=== PATIENT | male | born 1950 | race Caucasian/White ===

== ENCOUNTER 2018-06-21 18:30 | Observation (INO) | payer MEDICARE, OTHER ==
[~2018-06-21] VITALS: Ht 170.2 cm; Wt 80.5 kg
[~2018-06-21 18:30] MED LIST: ASPI-496 PO; CARV-39 PO; FINA5TAB4 PO; MULT-658 PO; PRAV20TA2 PO; SOTA160T PO; SOTA80TA PO; UBID100C24 PO; VALS40TA2 PO; magnesium PO; potassium PO
[2018-06-21 19:07] LABS: BASOPHILS # (AUTO) 0.03 x10^3/uL (0-0.1); BASOPHILS % (AUTO) 0 % (0-1); EOSINOPHILS # (AUTO) 0.19 x10^3/uL (0-0.4); EOSINOPHILS % (AUTO) 3 % (1-7); LYMPHOCYTES # (AUTO) 2.39 x10^3/uL (1-3.4); LYMPHOCYTES % (AUTO) 35 % (22-44); MD NO; MEAN CORPUSCULAR HEMOGLOBIN 33.1 pg (27.5-34.5); MEAN CORPUSCULAR HGB CONC 34.1 g/dL (33.2-36.2); MEAN PLATELET VOLUME 7.7 fL (7.4-10.4); MONOCYTES # (AUTO) 0.67 x10^3/uL (0.2-0.8); MONOCYTES % (AUTO) 10 % (2-9); NEUTROPHILS # (AUTO) 3.56 x10^3/uL (1.8-6.8); NEUTROPHILS % (AUTO) 52 % (42-75); PLATELET COUNT 180 x10^3/uL (130-400); RED BLOOD COUNT 4.59 x10^6/uL (4.38-5.82); RED CELL DISTRIBUTION WIDTH 12.8 % (9.4-14.8)
[2018-06-21] MEDS ORDERED: LOSA25TA25 PO (19:10)
[2018-06-21 19:18] LABS: ALBUMIN 3.9 g/dL (3.4-5.0); ANION GAP 7 mmol/L (5-15); CALCIUM 8.7 mg/dL (8.5-10.1); CHLORIDE 108 mmol/L (98-107); CREATININE 0.95 mg/dL (0.7-1.3)
--- NOTE | 2018-06-21 19:19 | NUR ---
Pt presents to ED for palpitations. Pt has AICD in place that fired last night. Pt states has been years since it has fired. Pt states palpitations today asn was afraid it would fire again. NSR on onitor with PACs and PVCs. No CP, no SOB.. NAD at this time
[2018-06-21 19:22] LABS: TROPONIN I < 0.015 ng/mL (0.000-0.045)
[2018-06-21 19:49] LABS: FREE T4 (FREE THYROXINE) 0.83 ng/dL (0.76-1.46); THYROID STIMULATING HORMONE 2.39 mIU/L (0.358-3.740)
[2018-06-21] MEDS ORDERED: SODIUM CHLORIDE FLUSH 10ML SYR IVF PRN (20:30)
[2018-06-21] MEDS ORDERED: ENOXAPARIN 40 MG/0.4 ML SQ SCH (21:30)
[2018-06-21] MEDS ORDERED: ONDANSETRON 2MG/ML, 2ML IVPush PRN (21:30)
--- NOTE | 2018-06-21 21:36 | NUR ---
REPORT FROM GABE RN. PT RESTING. VSS. PT WAITING FOR ROOM ASSIGNMENT. CALL LIGHT IN REACH.
--- NOTE | 2018-06-21 21:39 | NUR ---
Report to Lorrie BENSON
[2018-06-21 21:45] LABS: TROPONIN I < 0.015 ng/mL (0.000-0.045)
[2018-06-21 23:30] VITALS: BP 116/77
[2018-06-22 02:52] VITALS: BP 110/72
[2018-06-22 03:11] LABS: BASOPHILS # (AUTO) 0.02 x10^3/uL (0-0.1); BASOPHILS % (AUTO) 0 % (0-1); EOSINOPHILS # (AUTO) 0.18 x10^3/uL (0-0.4); EOSINOPHILS % (AUTO) 3 % (1-7); LYMPHOCYTES # (AUTO) 2.18 x10^3/uL (1-3.4); LYMPHOCYTES % (AUTO) 37 % (22-44); MD NO; MEAN CORPUSCULAR HEMOGLOBIN 32.4 pg (27.5-34.5); MEAN CORPUSCULAR HGB CONC 33.7 g/dL (33.2-36.2); MEAN CORPUSCULAR VOLUME 96.3 fL (81-97); MEAN PLATELET VOLUME 7.9 fL (7.4-10.4); MONOCYTES # (AUTO) 0.59 x10^3/uL (0.2-0.8); MONOCYTES % (AUTO) 10 % (2-9); NEUTROPHILS # (AUTO) 2.91 x10^3/uL (1.8-6.8); NEUTROPHILS % (AUTO) 49 % (42-75); PLATELET COUNT 145 x10^3/uL (130-400); RED BLOOD COUNT 4.33 x10^6/uL (4.38-5.82); RED CELL DISTRIBUTION WIDTH 12.9 % (9.4-14.8)
[2018-06-22 03:24] LABS: ANION GAP 5 mmol/L (5-15); CALCIUM 8.5 mg/dL (8.5-10.1); CHLORIDE 111 mmol/L (98-107); CREATININE 0.97 mg/dL (0.7-1.3)
[2018-06-22 03:28] LABS: TROPONIN I < 0.015 ng/mL (0.000-0.045)
[2018-06-22 06:55] VITALS: BP 114/66
[2018-06-22] MEDS ORDERED: CARVEDILOL 25 MG TABLET PO SCH (09:00)
[2018-06-22] MEDS ORDERED: LOSARTAN 25MG TABLET PO SCH (09:00)
[2018-06-22] MEDS ORDERED: SOTALOL 80MG TABLET PO SCH (09:00)
[2018-06-22] MEDS ORDERED: SOTALOL HCL 40 MG PO SCH (09:00)
[2018-06-22] MEDS ORDERED: ASPIRIN 81 MG TABLET CHEW PO SCH (09:00)
[2018-06-22] MEDS ORDERED: MULTIVITAMIN 1 TABLET PO SCH (09:00)
[2018-06-22] MEDS ORDERED: FINASTERIDE 5 MG TABLET PO SCH (09:00)
[2018-06-22] MEDS ORDERED: PRAVASTATIN 20 MG TABLET PO SCH (21:00)
== END 2018-06-22 08:08 | disposition left against medical advice (07) ==
LOC: ED 20:12 → EDIP 21:13 → 5SO 22:23
PROVIDERS: ADMIT Family Medicine; ATTEND Family Medicine
DX: T82.199A Other mechanical complication of unspecified cardiac device, initial encounter (principal); R42 Dizziness and giddiness; E78.5 Hyperlipidemia, unspecified; I10 Essential (primary) hypertension; I42.9 Cardiomyopathy, unspecified; I47.2 Ventricular tachycardia; K21.9 Gastro-esophageal reflux disease without esophagitis; N40.0 Benign prostatic hyperplasia without lower urinary tract symptoms; Z79.01 Long term (current) use of anticoagulants; Z86.79 Personal history of other diseases of the circulatory system; Z95.0 Presence of cardiac pacemaker
CPT/HCPCS: 36415; 71045; 80048; 82040; 83735; 84439; 84443; 84484; 85025; 93005; 99284; G0378

== ENCOUNTER 2018-06-24 11:28 | Inpatient (IN) | payer MEDICARE, OTHER ==
[~2018-06-24] VITALS: Ht 170.2 cm; Wt 76.4 kg
[~2018-06-24 11:28] MED LIST changes: +LOSA25TA25 PO
--- NOTE | 2018-06-24 12:10 | NUR ---
PT PRESENTED TO ED WITH HIS DEFIBRILLATOR GOING OFF LAST NIGHT AND MONDAY. PT A&OX4. PT WAS ADMITTED ON MONDAY FOR THE SAME. PT A&OX4. EKG DONE IN TRIAGE AND PRESENTED TO MD. PT INTERROGATED BY RN ADVANCED YANI JANG. PT PLACED ON BP, CARDIAC AND CONT. PULSE OXIMETER. ASSESSMENT COMPLETED. LAB AT BEDSIDE.
--- NOTE | 2018-06-24 12:16 | NUR ---
PT REFUSING CHEST XRAY. MD AWARE.
[2018-06-24 12:26] LABS: BASOPHILS % (AUTO) 0 % (0-1); EOSINOPHILS # (AUTO) 0.09 x10^3/uL (0-0.4); EOSINOPHILS % (AUTO) 2 % (1-7); LYMPHOCYTES # (AUTO) 1.52 x10^3/uL (1-3.4); LYMPHOCYTES % (AUTO) 26 % (22-44); MD NO; MEAN CORPUSCULAR HGB CONC 33.1 g/dL (33.2-36.2); MEAN CORPUSCULAR VOLUME 96.6 fL (81-97); MEAN PLATELET VOLUME 7.9 fL (7.4-10.4); MONOCYTES # (AUTO) 0.53 x10^3/uL (0.2-0.8); MONOCYTES % (AUTO) 9 % (2-9); NEUTROPHILS # (AUTO) 3.77 x10^3/uL (1.8-6.8); NEUTROPHILS % (AUTO) 64 % (42-75); PLATELET COUNT 191 x10^3/uL (130-400); RED BLOOD COUNT 4.56 x10^6/uL (4.38-5.82); RED CELL DISTRIBUTION WIDTH 13.3 % (9.4-14.8)
[2018-06-24 12:34] LABS: ALBUMIN 3.7 g/dL (3.4-5.0); ANION GAP 6 mmol/L (5-15); CALCIUM 8.6 mg/dL (8.5-10.1); CHLORIDE 111 mmol/L (98-107)
[2018-06-24 12:41] LABS: CREATININE 0.97 mg/dL (0.7-1.3); TROPONIN I < 0.015 ng/mL (0.000-0.045)
--- NOTE | 2018-06-24 12:41 | NUR ---
paged dr cade for dr henson.
--- NOTE | 2018-06-24 13:25 | NUR ---
PT RESTING IN BED. WARM BLANKET GIVEN TO PT.
[2018-06-24] MEDS ORDERED: LORazepam 2 MG/ML, 1ML IVPush PRN (14:00)
--- NOTE | 2018-06-24 14:27 | NUR ---
PT UP TO BR AND VOIDED. URINE COLLECTED AND SENT TO LAB. REPORT GIVEN TO PRICILLA BENSON
[2018-06-24] MEDS ORDERED: LORazepam 0.5MG TABLET ONE (14:28)
[2018-06-24] MEDS: SODIUM CHLORIDE FLUSH 10ML SYR IVF SCH (14:31)
[2018-06-24] MEDS: LORazepam 0.5MG TABLET PO SCH ×2 (14:31→21:52)
[2018-06-24 14:59] VITALS: BP 121/78
[2018-06-24] MEDS ORDERED: LIDOCAINE 2% 100MG/5ML SYRINGE IVPush ONE (19:30)
[2018-06-24] MEDS: LIDOCAINE IV PRN (20:15)
[2018-06-24] MEDS: DEX IV PRN (20:15)
[2018-06-24] MEDS ORDERED: PRAVASTATIN 20 MG TABLET PO SCH (21:00)
[2018-06-24] MEDS: ZOLPIDEM 5MG TABLET PO SCH (21:52)
[2018-06-24] MEDS: CARVEDILOL 25 MG TABLET PO SCH (21:54)
[2018-06-25 04:38] LABS: CHOL/HDL RATIO 5.2
[2018-06-25] MEDS: LORazepam 0.5MG TABLET PO SCH ×2 (05:30→13:30)
[2018-06-25] MEDS ORDERED: MAGNESIUM OXIDE 400 MG TABLET PO SCH (09:00)
[2018-06-25] MEDS ORDERED: MULTIVITAMIN 1 TABLET PO SCH (09:00)
[2018-06-25] MEDS: CARVEDILOL 25 MG TABLET PO SCH ×2 (09:00→19:55)
[2018-06-25] MEDS ORDERED: FINASTERIDE 5 MG TABLET PO SCH (09:00)
[2018-06-25] MEDS ORDERED: ASPIRIN 81 MG TABLET EC PO SCH (09:00)
[2018-06-25] MEDS ORDERED: TEMPLATE NON-FORMULARY MED. (Ubidecarenone (Coq-10) 300 MG) PO SCH (09:00)
[2018-06-25] MEDS ORDERED: LOSARTAN 25MG TABLET PO SCH (09:00)
[2018-06-25] MEDS: SODIUM CHLORIDE FLUSH 10ML SYR IVF SCH ×2 (10:23→19:55)
[2018-06-25] MEDS: LORazepam 1MG TABLET PO PRN ×2 (14:56→19:55)
[2018-06-25 19:51] VITALS: BP 116/79
[2018-06-25] MEDS: ZOLPIDEM 5MG TABLET PO SCH (19:55)
[2018-06-25] MEDS: LIDOCAINE IV PRN (21:31)
[2018-06-25] MEDS: DEX IV PRN (21:31)
[2018-06-26] VITALS (7 sets, daily range): BP systolic 112–127; BP diastolic 72–84
[2018-06-26] MEDS: MAGNESIUM OXIDE 400 MG TABLET PO SCH (06:34)
[2018-06-26] MEDS: FINASTERIDE 5 MG TABLET PO SCH (06:34)
[2018-06-26] MEDS: MULTIVITAMIN 1 TABLET PO SCH (06:34)
[2018-06-26] MEDS: ASPIRIN 81 MG TABLET EC PO SCH (06:35)
[2018-06-26] MEDS: LOSARTAN 25MG TABLET PO SCH (06:35)
[2018-06-26] MEDS: PRAVASTATIN 20 MG TABLET PO SCH (06:35)
[2018-06-26] MEDS: MEXILETINE 150 MG CAPSULE PO SCH ×3 (09:37→20:48)
[2018-06-26] MEDS: SODIUM CHLORIDE FLUSH 10ML SYR IVF SCH ×2 (09:37→20:30)
[2018-06-26] MEDS: CARVEDILOL 25 MG TABLET PO SCH ×2 (09:37→20:30)
[2018-06-26] MEDS: LORazepam 1MG TABLET PO PRN ×3 (09:42→20:48)
[2018-06-26] MEDS ORDERED: DEX IV SCH (17:00)
[2018-06-26] MEDS ORDERED: LIDOCAINE IV SCH (17:00)
[2018-06-26] MEDS: ZOLPIDEM 5MG TABLET PO SCH (20:30)
[2018-06-27] MEDS: MEXILETINE 150 MG CAPSULE PO SCH ×2 (03:30→09:35)
[2018-06-27 03:33] VITALS: BP 121/83
[2018-06-27 07:00] VITALS: BP 127/62
[2018-06-27] MEDS: ASPIRIN 81 MG TABLET EC PO SCH (07:01)
[2018-06-27] MEDS: LOSARTAN 25MG TABLET PO SCH (07:02)
[2018-06-27] MEDS: PRAVASTATIN 20 MG TABLET PO SCH (07:02)
[2018-06-27] MEDS: MULTIVITAMIN 1 TABLET PO SCH (07:02)
[2018-06-27] MEDS: MAGNESIUM OXIDE 400 MG TABLET PO SCH (07:02)
[2018-06-27] MEDS: FINASTERIDE 5 MG TABLET PO SCH (07:02)
[2018-06-27 07:32] VITALS: BP 130/82
[2018-06-27] MEDS: SODIUM CHLORIDE FLUSH 10ML SYR IVF SCH (07:32)
[2018-06-27] MEDS: CARVEDILOL 25 MG TABLET PO SCH (07:35)
[2018-06-27 09:35] VITALS: BP 123/76
[2018-06-27] MEDS ORDERED: MEXI150C PO (09:49)
== END 2018-06-27 13:40 | disposition home or self-care (01) | DRG 309 ==
LOC: ED 12:58 → EDIP 13:22 → 5SO 14:56 → CCU 19:41 → 5SO 06-25 13:16 → DCLOUNGE 06-27 13:36
PROVIDERS: ADMIT Internal Medicine Cardiovascular Disease; ATTEND Internal Medicine Cardiovascular Disease
PROC: 4B02XTZ Measurement of Cardiac Defibrillator, External Approach (ICD-10-PCS; principal; 2018-06-24)
DX: I47.2 Ventricular tachycardia (principal); I42.9 Cardiomyopathy, unspecified; I50.42 Chronic combined systolic (congestive) and diastolic (congestive) heart failure; I11.0 Hypertensive heart disease with heart failure; E78.5 Hyperlipidemia, unspecified; F41.9 Anxiety disorder, unspecified; K21.9 Gastro-esophageal reflux disease without esophagitis; I25.10 Atherosclerotic heart disease of native coronary artery without angina pectoris; Z95.810 Presence of automatic (implantable) cardiac defibrillator; Z90.49 Acquired absence of other specified parts of digestive tract; Z87.891 Personal history of nicotine dependence
CPT/HCPCS: 36415; 80048; 80061; 82040; 84155; 84156; 84165; 84166; 84484; 85025; 87081; 93005; 93306; 99285; G0378; J2001

== ENCOUNTER 2018-06-27 20:10 | Emergency (ER) | payer MEDICARE, OTHER ==
[~2018-06-27] VITALS: Ht 170.2 cm; Wt 77.8 kg
[~2018-06-27 20:10] MED LIST changes: +MEXI150C PO
[2018-06-27] MEDS ORDERED: SODIUM CHLORIDE FLUSH 10ML SYR IVF ONE (20:30)
[2018-06-27 20:47] LABS: BASOPHILS # (AUTO) 0.02 x10^3/uL (0-0.1); BASOPHILS % (AUTO) 0 % (0-1); EOSINOPHILS # (AUTO) 0.09 x10^3/uL (0-0.4); EOSINOPHILS % (AUTO) 2 % (1-7); LYMPHOCYTES # (AUTO) 2.04 x10^3/uL (1-3.4); LYMPHOCYTES % (AUTO) 35 % (22-44); MD NO; MEAN CORPUSCULAR HEMOGLOBIN 33.5 pg (27.5-34.5); MEAN CORPUSCULAR HGB CONC 34.7 g/dL (33.2-36.2); MEAN CORPUSCULAR VOLUME 96.5 fL (81-97); MEAN PLATELET VOLUME 7.8 fL (7.4-10.4); MONOCYTES # (AUTO) 0.61 x10^3/uL (0.2-0.8); MONOCYTES % (AUTO) 11 % (2-9); NEUTROPHILS # (AUTO) 3.09 x10^3/uL (1.8-6.8); NEUTROPHILS % (AUTO) 53 % (42-75); PLATELET COUNT 180 x10^3/uL (130-400)
[2018-06-27] MEDS ORDERED: LORazepam 2 MG/ML, 1ML ONE (20:51)
[2018-06-27 20:55] LABS: PROTHROMBIN TIME 10.5 Seconds (9.6-11.5)
[2018-06-27 20:58] LABS: ALANINE AMINOTRANSFERASE 26 U/L (12-78); ALBUMIN 3.9 g/dL (3.4-5.0); ANION GAP 6 mmol/L (5-15); CALCIUM 8.8 mg/dL (8.5-10.1); CHLORIDE 108 mmol/L (98-107); CREATININE 1.05 mg/dL (0.7-1.3)
[2018-06-27] MEDS ORDERED: LORazepam 2 MG/ML, 1ML IVPush ONE (21:00)
[2018-06-27 21:02] LABS: ALKALINE PHOSPHATASE 61 U/L (45-117); BILIRUBIN,TOTAL 1.2 mg/dL (0.2-1.0); TOTAL PROTEIN 7.5 g/dL (6.4-8.2); TROPONIN I < 0.015 ng/mL (0.000-0.045)
[2018-06-27 21:26] VITALS: BP 132/87
--- NOTE | 2018-06-27 21:26 | NUR ---
PT. REPROTS ANXIETY WENT FROM 08/17 TO 05/[address] KAN WAS IN TO DISCUSS PLAN FOR D/C WITH PT. AND FAMILY.
== END 2018-06-27 21:44 | disposition home or self-care (01) ==
LOC: ED 21:38
DX: R00.2 Palpitations (principal); K21.9 Gastro-esophageal reflux disease without esophagitis; I10 Essential (primary) hypertension; I42.9 Cardiomyopathy, unspecified
CPT/HCPCS: 36415; 80053; 83735; 84484; 85025; 85610; 85730; 93005; 96374; 99284; J2060